=== PATIENT | female | born 1960 | race Caucasian/White ===

== ENCOUNTER 2016-09-01 07:37 | Day surgery (SDC) | payer BC, MEDICAID ==
[2016-09-01] MEDS ORDERED: DIPHENHYDRAMINE HCL 50 MG/ML VIAL ONE (07:48)
[2016-09-01] MEDS ORDERED: ONDANSETRON HCL INJ/PF 4 MG/2 ML SDV ONE (07:48)
[2016-09-01] MEDS ORDERED: PROMETHAZINE HCL INJ 25 MG/1 ML VIAL ONE (07:48)
[2016-09-01] MEDS ORDERED: NALOXONE HCL INJ/PF 0.4 MG/1 ML SDV ONE (07:48)
[2016-09-01] MEDS ORDERED: FENTANYL CITRATE INJ/PF 100 MCG/2 ML AMPUL ONE (07:49)
[2016-09-01] MEDS ORDERED: EPINEPHRINE INJ 1 MG/10 ML DISP.SYRIN ONE (07:50)
[2016-09-01] MEDS ORDERED: FLUMAZENIL INJ 0.5 MG/5 ML VIAL IV ONE (07:50)
[2016-09-01] MEDS ORDERED: GLUCAGON,HUMAN RECOMB 1 MG INJ ONE (07:50)
[2016-09-01] MEDS: MIDAZOLAM 2 MG/2 ML INJ ONE ×3 (08:07→08:15)
--- NOTE | 2016-09-01 08:34 | Operative Report ---
Operative Report DATE OF SURGERY: 09/01/16 Operative Report: The risks benefits and alternatives of the procedure explained to the patient in detail and informed consent is obtained that GIF Olympus video scope was inserted into the patient's mouth and hypopharynx the esophagus is identified intubated and insufflated the scope was then advanced through the esophagus stomach and duodenum retroflexion maneuver is done the esophagus stomach and first and second portions of the duodenum examined PREOPERATIVE DIAGNOSIS: Follow-up esophageal ulcer, erosive esophagitis. Patient has been treated with PPI for 8 weeks POSTOPERATIVE DIAGNOSIS: No further ulceration that has healed. 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 Conscious sedation monitoring to 15 minutes. TISSUE REMOVED OR ALTERED: None COMPLICATIONS: None ESTIMATED BLOOD LOSS: none. INTRAOPERATIVE FINDINGS: As described above. Ablative therapy is done to remove the areas of Mesa's esophagus. Hiatal hernia. Esophageal ulcer. Normal first and second portions of the duodenum. Improved gastritis PROCEDURE: Patient tolerated the procedure well. No immediate postprocedure complications are noted. Patient is discharged in good condition. Discharge date 09/01/2016. Discharge diet: Regular. Discharge activity: Regular. 2-3 week follow-up to discuss findings. Surveillance in 1 year. Patient is instructed to call the office or proceed to the emergency room should there be any further problems or questions.
[2016-09-01 09:32] VITALS: BP 107/77
== END 2016-09-01 09:30 | disposition home or self-care (01) ==
LOC: END 07:37
PROVIDERS: ATTEND Internal Medicine Gastroenterology
PROC: 0D558ZZ Destruction of Esophagus, Via Natural or Artificial Opening Endoscopic (ICD-10-PCS; principal; 2016-09-01 08:00)
DX: K22.719 Barrett's esophagus with dysplasia, unspecified (principal); Z09 Encounter for follow-up examination after completed treatment for conditions other than malignant neoplasm; Z87.11 Personal history of peptic ulcer disease
CPT/HCPCS: 43270; J2250; J3010; J0171; J1200; J1610; J2310; J2405; J2550; J3490